=== PATIENT | male | born 1950 | race Two or more races ===

== ENCOUNTER 2022-01-06 12:37 | Outpatient (REF) | payer MEDICARE, MEDICAID, SELFPAY | END 2022-01-06 12:38 | disposition home or self-care (01) | LOC: HO.US 12:37 | PROVIDERS: Visit Provider Internal Medicine | DX: M79.661 Pain in right lower leg (principal); M79.662 Pain in left lower leg | CPT/HCPCS: 93923 ==

== ENCOUNTER 2023-07-05 08:51 | Outpatient (REF) | payer OTHER, SELFPAY ==
[2023-07-05 13:53] LABS: MANUAL DIFF FLAG NO
[2023-07-05 13:56] LABS: Basophils Percent Auto 0.5 % (0-2); Eosinophils Percent Auto 0.3 % (0-4); Hematocrit 40.6 % (42.0-52.0); Hemoglobin 13.9 g/dl (14.0-18.0); Imm Gran Abs Auto 0.06 X10*3/uL (0.00-0.03); Imm Gran Pct Auto 0.7 % (0.0-0.4); Lymphocytes Percent Auto 11.5 % (20-40); Mean Corpuscular HGB Conc 34.2 g/dl (31.0-36.0); Mean Corpuscular Hemoglobin 29.9 pg (27.0-33.0); Mean Corpuscular Volume 87.3 fL (80.0-98.0); Mean Platelet Volume 9.8 fL (9.4-12.4); Monocytes Absolute Auto 0.8 X10*3/uL (0.1-1.2); Neutrophils Absolute Auto 6.9 x10*3/uL (2.0-8.3); Platelet Count 247 X10*3/uL (160-400); Red Blood Count 4.65 X10*6/uL (4.60-5.80); Red Cell Distribution Width 13.4 % (11.0-16.0); White Blood Count 8.8 X10*3/uL (4.8-10.8)
[2023-07-05 14:05] LABS: Estimated Average Glucose 120 mg/dL; Hemoglobin A1c % 5.8 % (<6.0)
[2023-07-05 14:16] LABS: Alanine Aminotransferase 13 U/L (0-40); Albumin Level 4.2 g/dL (3.5-5.0); Alkaline Phosphatase 67 U/L (39-117); Anion Gap 12 (12-20); Aspartate Amino Transferase 25 U/L (5-37); Bilirubin Total 0.9 mg/dL (0.0-1.0); Blood Urea Nitrogen 12 mg/dL (9-16); Calcium 9.7 mg/dL (8.4-10.2); Carbon Dioxide 29 mmol/L (22-29); Chloride 96 mmol/L (96-108); Cholesterol 110 mg/dL (<200); Estimated Glomerular Filt Rate > 60; Glucose Random 86 mg/dL (60-115); HDL Cholesterol 37 mg/dL (>40); LDL Cholesterol Calculated 58 mg/dL (<100); Potassium 3.8 mmol/L (3.3-5.1); Sodium 133 mmol/L (135-145); Total Protein 7.4 g/dL (6.5-8.0); Triglycerides 75 mg/dL (<150)
[2023-07-05 14:31] LABS: TSH reflex Free T4 0.88 uIU/mL (0.32-4.0)
== END 2023-07-05 08:52 | disposition home or self-care (01) ==
LOC: HO.CHCLDS 08:51
PROVIDERS: Visit Provider Internal Medicine
DX: E11.9 Type 2 diabetes mellitus without complications (principal)
CPT/HCPCS: 36415; 80053; 80061; 83036; 84443; 85025

== ENCOUNTER 2023-09-08 10:08 | Outpatient (REF) | payer OTHER, SELFPAY ==
[2023-09-08 15:12] LABS: Creatinine Urine 133.18 mg/dL; Microalbum/Creatinine Ratio Ur 17.2 ug/mg cr (<30)
== END 2023-09-08 10:09 | disposition home or self-care (01) ==
LOC: HO.CHCLDS 10:08
PROVIDERS: Visit Provider Internal Medicine
DX: E11.9 Type 2 diabetes mellitus without complications (principal)
CPT/HCPCS: 82043; 82570

== ENCOUNTER 2024-04-18 08:54 | Outpatient (REF) | payer OTHER, SELFPAY ==
[2024-04-18 14:39] LABS: Estimated Average Glucose 120 mg/dL; Hemoglobin A1C 152.3098 umol/L; Hemoglobin A1c % 5.8 % (<6.0); Total Hemoglobin (HGBA1C) 3816.6506 umol/L
[2024-04-18 14:42] LABS: Alanine Aminotransferase 9 U/L (0-40); Albumin Level 4.4 g/dL (3.5-5.0); Alkaline Phosphatase 68 U/L (39-117); Anion Gap 7 (12-20); Aspartate Amino Transferase 34 U/L (5-37); Bilirubin Total 0.9 mg/dL (0.0-1.0); Blood Urea Nitrogen 16 mg/dL (9-16); Calcium 9.9 mg/dL (8.4-10.2); Carbon Dioxide 32 mmol/L (22-29); Chloride 99 mmol/L (96-108); Cholesterol 112 mg/dL (<200); Estimated Glomerular Filt Rate > 60; Glucose Random 93 mg/dL (60-115); HDL Cholesterol 40 mg/dL (>40); LDL Cholesterol Calculated 59 mg/dL (<100); Sodium 134 mmol/L (135-145); Total Protein 7.4 g/dL (6.5-8.0); Triglycerides 67 mg/dL (<150)
== END 2024-04-18 08:55 | disposition home or self-care (01) ==
LOC: HO.CHCLDS 08:54
PROVIDERS: Visit Provider Internal Medicine
DX: I10 Essential (primary) hypertension (principal); E78.2 Mixed hyperlipidemia; Z13.1 Encounter for screening for diabetes mellitus
CPT/HCPCS: 36415; 80053; 80061; 83036

== ENCOUNTER 2024-10-31 08:53 | Outpatient (AMB) | payer OTHER, SELFPAY ==
--- NOTE | 2024-10-31 08:55 | MHC.OFFVIS ---
Vital Signs 10/31/24 08:56 Height 5 ft 5 in Weight 159 lb 9.835 oz BMI 26.6 BP 142/65 H Blood Pressure Location Lt brachial Position Sitting Pulse 56 Intake Visit Reasons: Pt requested int Colonoscopy Screening Intake Note: New patient in office today for colonoscopy screening. CC: Patient c/o constipation and hx of hemorrhoids w/bleeding in the past. Last colonoscopy in his 40s at [facility]. Utility Systems Repairer Operator Required: Yes Accompanied by: Self / Same As Patient Allergies Penicillins Allergy (Unknown, Verified 10/31/24 09:03) Unknown HPI HPI Pt requested int Colonoscopy Screening: Details: 74-year-old male here for preprocedural meeting to discuss a screening colonoscopy. He is referred by [facility]. PMX Hypertension High cholesterol CAD IA Peripheral arterial disease Diabetes HX OF SEIZURES * SURGICAL HISTORY Cardiac stent CABG Colonoscopy-in his 40s at [facility] * ALLERGIES Penicillin * [employer] LABS: Laboratory Tests 04/18/24 08:55 Estimated GFR > 60 Total Bilirubin 0.9 AST 34 ALT 9 Alkaline Phosphatase 68 TODAY'S VISIT [place] #Hillary Connell and Jen HE had a prior colonoscopy when he was 40 yrs old at [facility], he thinks there may have been polyps. He suffers CIC which is controlled with senna and no upper GI problems. Cardiology: Dr. Goldstein @ [facility] He has CAD and hx of IA, no respiratory problems. He has a hx of epilepsy that is well controlled. No prior anes or sed problems. No ID problems. There is no known FHX of crc or polyps. [facility] History (Updated 10/31/24 @ 09:49 by LATOYA Cardoso) S/P CABG (coronary artery bypass graft) H/O heart artery stent H/O colonoscopy Family History (Updated 10/31/24 @ 09:08 by NICOL Dyer) Mother Heart disease Social History Alcohol intake: never Patient Tobacco Use Status: Never used Tobacco Review of Systems Const Denies fatigue, Denies fever(s), Denies night sweats, Denies poor appetite and Denies weight loss ENT Reports Normal hearing present, Denies dental pain, Denies dysphagia, Denies hearing loss, Denies mouth pain, Denies odynophagia, Denies throat swelling, Denies tongue swelling and Reports other (Dentition adequate) Card Reports no additional complaints Resp Reports no additional complaints GI Details: Denies abdominal pain, Denies melena, Denies bloating, Denies hematochezia, Reports constipation, Denies GI cramping, Denies dysphagia, Denies excessive flatus, Denies early satiety, Denies heartburn, Denies diarrhea, Denies nausea, Denies odynophagia, Denies vomiting and Denies hematemesis Skin/Breast Denies pruritus, Denies lesions, Denies rash and Denies jaundice Neuro Reports Normal hearing present and Denies Abnormal speech present Endo Denies fatigue Aller/Immun Denies throat swelling and Denies tongue swelling Physical Exam Vital Signs: BMI result Body Mass Index 26.6 Const General: cooperative, no acute distress, well developed and well groomed Nutritional Appearance: well nourished Orientation/consciousness: oriented to person, oriented to place and oriented to time Limitations: language barrier HEENT Head: Yes normocephalic and Yes atraumatic Eyes General: appearance normal, both eyes and all related structures Pupils: Equal, round and reactive pupils present Neck Neck: Yes normal visual inspection and Yes no lymphadenopathy Thyroid: Thyroid normal Resp Effort & Inspection: normal respiratory effort and able to speak in complete sentences Auscultation: clear to auscultation bilaterally Cardio Rate: regular rate Rhythm: regular rhythm Heart sounds: Normal, physiologic split S2 sound present Peripheral pulses: radial pulses present and posterior tibial pulses present GI Inspection: No distended and No Abdominal panniculus present Palpation (GI): Soft to palpation, nontender, no guarding, not rigid and No hepatosplenomegaly present Percussion: Yes normal to percussion Auscultation: normal bowel sounds Rectal Exam - Male: Yes deferred Abdomen image:  1. surgical scar Skin General skin exam: no rashes or lesions noted, turgor normal, skin not dry, no jaundice, No spider nevi and no striae Rashes: no rashes Nails: normal Neuro General: oriented to person, oriented to place and oriented to time Cranial nerves: Yes Equal, round and reactive pupils present and Yes Normal hearing present Speech: No Abnormal speech present Motor exam (neuro): Tremors during motor activity present (Upper extremity worse on left side hand) Extrem General: Yes normal to inspection, No clubbing, No cyanosis and Yes edema (mild left ankle) Psych Appearance: grossly normal and well kempt Mental Status: mental status grossly normal Speech and movement: Normal speech and movement present Affect: normal affect Attitude: cooperative Thought process: Normal thought process present and not confabulating Thought content: Normal thought content present Insight: Fair insight present (Psych) and Limited insight present (Psych) Judgement: Fair judgement present (Psych) and Limited judgement present (Psych) Assessment & Plan Assessment & Plan (1) Pre-op examination: Code(s): Z01.818 - Encounter for other preprocedural examination Category: Medical (2) Epilepsy: Code(s): G40.909 - Epilepsy, unspecified, not intractable, without status epilepticus Category: Medical (3) CAD (coronary artery disease): Code(s): I25.10 - Atherosclerotic heart disease of [place] coronary artery without angina pectoris Category: Medical Plan [place] #Hillary Connell and Jen HE had a prior colonoscopy when he was 40 yrs old at [facility], he thinks there may have been polyps. He suffers CIC which is controlled with senna and no upper GI problems. Cardiology: Dr. Goldstein @ [facility] He has CAD and hx of IA, no respiratory problems. He has a hx of epilepsy that is well controlled. No prior anes or sed problems. No ID problems. There is no known FHX of crc or polyps. Orders: Orders Colonoscopy - GI Use Only Today Z01.818 - Encounter for other preprocedural examination Medications: New peg 3350-electrolytes 236-22.74-6.74 -5.86 gram (Golytely) until fecal effluent is clear; do not exceed a total volume of 2,000 mL 240 mL PO Q10M 4,000 mL 0RF 1 day Z12.11 - Encounter for screening for malignant neoplasm of colon bisacodyl (Dulcolax (bisacodyl)) 10 mg (2 x 5 mg) PO BEDTIME 4 tabs 0RF 2 days Coding Level of Care Code New Pt Level 3 (46335) Diagnoses Pre-op examination Z01.818 Epilepsy G40.909 CAD (coronary artery disease) I25.10
[2024-10-31 08:56] VITALS: BP 142/65; PULSE 56; BMI 26.6
--- OUTSIDE RECORDS SUMMARY | 2024-10-31 09:15 | XMS_ITS | Clinical Summary ---
Author Organization [facility] it[facility] Address [address] [place] [address] Care Team Providers Care Director Patient Financial Services Name Role Phone Sal Granger Primary Care Provide r Social History Tobacco Use Types Packs/Day Years Used Date Smoking Tobacco: Never Smokeless Tobacco: Never Alcohol Use Standard Drinks/Week Comments Not Currently 0 (1 standard drink = 0.6 oz pur e alcohol) Sex and Gender Information Value Date Recorded Sex Assigned at Not on file Legal Sex Male 4:54 AM EST Gender Identity Not on file Sexual Orientation Not on file Obstetrics History Last Filed Vital Signs Vital Sign Reading Time Taken Comments Blood Pressure 128/70 01/23/2024 9:29 AM EDT Sit ting L Arm Pulse 58 01/23/2024 9:29 AM EDT Temperature - - Respiratory Rate - - Oxygen Saturation - - Inhaled Oxygen Concentration - - Weight 72.6 kg (160 lb) 01/23/2024 9:29 AM EDT Height 165.1 cm (5' 5 ) 01/23/2024 9:29 AM EDT Body Mass Index 26.63 01/23/2024 9:29 AM EDT Plan of Treatment Health Maintenance Due Date Last Done Comments DTaP,Tdap,and Td Vaccines (1 - Tdap) 1969 Pneumococcal Vaccine: 50+ Years (1 of 1 - PCV) 2000 Zoster Vaccines (1 of 2) 2000 Colorectal Cancer Screening: Colonoscopy 03/14/2022 Falls Risk Assessment 03/14/2022 Hepatitis C Screening 03/14/2022 Hypertension/CHF/CAD Annual BMP Blood Test 03/14/2022 Social Influencers of Health Screening 03/14/2022 COVID-19 Vaccine (1 - 2023-2 5 season) 2023 Depression Screening 04/04/2024 Influenza Vaccine (#1) 2024 2, 12/31/2019 RSV Immunization Adult Patients (1 - 1-dose 75+ series) 2025 Cholesterol Screening (Lipid Panel) 02/05/2029 02/06/2024 HIB Vaccines Aged Out No longer eligi ble based on patient's age to complete this topic HPV Vaccines Aged Out No longer eligi ble based on patient's age to complete this topic Hepatitis A Vaccines Aged Out No long er eligible based on patient's age to complete this topic Hepatitis B Vaccines Aged Out No long er eligible based on patient's age to complete this topic IPV Vaccines Aged Out No longer eligi ble based on patient's age to complete this topic MMR Vaccines Aged Out No longer eligi ble based on patient's age to complete this topic Meningococcal ACWY Vaccine Aged Out N o longer eligible based on patient's age to complete this topic Meningococcal B Vaccine Aged Out No l onger eligible based on patient's age to complete this topic RSV Immunization Patients Under 20 months Aged Out No longer eligible b ased on patient's age to complete this topic Varicella Vaccines Aged Out No longer eligible based on patient's age to complete this topic Procedures Procedure Name Priority Date/Time Associated Diagnosis Comments LIPID PANEL Routine 02/06/2024 9:04 AM EST from Last 3 Months or Most Recently Relevant to Health Maintenance Results * Lipid panel (02/06/2024 9:04 AM EST) Pathologist [facility] Cholesterol Total 121 100 - 199 mg/dL [facility] Triglycerides 74 0 - 149 mg/dL [facility] HDL Cholesterol 45 >39 mg/dL [facility] VLDL Cholesterol Calculated 15 5 - 40 mg/dL [facility] 1 LDL Chol Calc ([facility]) 61 0 - 99 mg/dL [facility] 1 02/06/2024 9:04 AM EST 02/06/2024 Narrative [facility] 1 - 02/07/2024 1:06 AM EST Performed at: [facility] [id number] Journeyman Electrician: Angelica Perry MD, Phone: [phone] us Arnoldo Lechuga FONDANT PUFF MAKER LAB BLOOD ORDERABLES Final Result [facility] 1 from Last 3 Months or Most Recently Relevant to Health Maintenance Care Teams Director Patient Financial Services Relationship Specialty Start Date End Date Sal Granger [address] [place], [place] PCP - General Internal Medicine 10/08/20
--- OUTSIDE RECORDS SUMMARY | 2024-10-31 09:15 | XMS_ITS | Encounter Summary ---
Author Organization [employer] [facility] Address [address] [place] [address] [address] [place] [address] Care Team Providers Care Delicatessen Department Manager Name Role Phone Sal Granger MD Primary Care Prov ider Reason for Visit * Reason Comments Med Refill Encounter Details Date Type Department Care Team (Late Contact Info) Description 10/06/2022 Refill [facility] [address] [place] [address] Sal Granger MD [address] [place] [address] Type 2 diabetes mellitus without complication, without long-term current use of insulin (CMS/HCC); Primary hypertension Social History Tobacco Use Types Packs/Day Years Used Date Smoking Tobacco: Never Assessed Sex and Gender Information Value Date Recorded Sex Assigned at Male 02/01/2022 10:37 AM EDT Legal Sex Male 10:37 AM EDT Gender Identity Male 02/01/2022 10:37 AM EDT Sexual Orientation Straight 02/01/2022 10 :37 AM EDT documented as of this encounter Plan of Treatment Upcoming Encounters Date Type Department Care Team (Late Contact Info) Description 12/24/2024 8:45 AM EDT Office Visit [facility] [address], [place] [phone] Sal Granger MD [address] [place] [address] documented as of this encounter Visit Diagnoses Diagnosis Type 2 diabetes mellitus without complication, without long-term current use of insulin (CMS/HCC) Primary hypertension Unspecified essential hypertension documented in this encounter Care Teams Delicatessen Department Manager Relationship Specialty Start Date End Date Sal Granger MD [address] [place] [id number] PCP - General Internal Medicine 03/06/20 documented as of this encounter
== END 2024-10-31 09:52 | disposition home or self-care (01) ==
LOC: HO.HGI 08:54
PROVIDERS: PCP Internal Medicine; Visit Provider Nurse Practitioner
DX: Z01.818 Encounter for other preprocedural examination (principal); Z12.11 Encounter for screening for malignant neoplasm of colon; G40.909 Epilepsy, unspecified, not intractable, without status epilepticus; I25.10 Atherosclerotic heart disease of native coronary artery without angina pectoris
CPT/HCPCS: 99024

== ENCOUNTER → 2024-10-31 08:53 | Outpatient (BNVA) | payer OTHER, SELFPAY | PROVIDERS: PCP Internal Medicine; Visit Provider Nurse Practitioner | DX: Z01.818 Encounter for other preprocedural examination (principal); K59.00 Constipation, unspecified; Z87.19 Personal history of other diseases of the digestive system; G40.909 Epilepsy, unspecified, not intractable, without status epilepticus; I25.10 Atherosclerotic heart disease of native coronary artery without angina pectoris | CPT/HCPCS: 99212 ==

== ENCOUNTER 2024-12-24 09:31 | Outpatient (REF) | payer OTHER, SELFPAY ==
--- OUTSIDE RECORDS SUMMARY | 2024-12-24 08:45 | XMS_ITS | Encounter Summary ---
Author Organization [employer] Address [address] [facility] [address] [place] [address] Care Team Providers Care Surveillance Agent Name Role Phone Sal Granger MD Primary Care Prov ider Encounter Details Date Type Department Care Team ([facility] st Contact Info) Description 12/24/2024 8:45 AM EDT Office Visit [facility] [address] [place], [place] [phone] Sal Granger MD [address] [place] [address] Type 2 diabetes mellitus without complication, without long-term current use of insulin ([facility]) Social History Tobacco Use Types Packs/Day Years Used Date Smoking Tobacco: Never Smokeless Tobacco: Never Alcohol Use Standard Drinks/Week Comments Never 0 (1 standard drink = 0.6 oz pur e alcohol) Depression Answer Date Recorded Patient Health Questionnaire-9 Score 0 09/18/2024 Patient Health Questionnaire-9 Score 0 09/18/2024 Last PHQ-9: Questionnaire Data Not on file 0 09/18/2024 Housing Stability Answer Date Recorded What is your housing situation today? I have erick real 09/18/[address] you li ve. Do you have problems with any of the following? None of the above 09/18/2024 Food Insecurity Answer Date Recorded Within the past 12 months, y ou worried that your food would run out before you got money to buy more: Never True 09/18/2024 Within the past 12 months,th e food you bought just didn't last and you didn't have enough money to get more: Never True Transportation Answer Date Recorded In the past 12 months, has l ack of transportation kept you from medical appts, meetings, work or from getting things needed for daily living? No 09/18/2024 Utilities Answer Date Recorded In the past 12 months, has t he electric, gas, oil or water company threatened to shut off services in your home? No 09/18/2024 Depression Answer Date Recorded Patient Health Questionnaire-2 Score 0 09/18/2024 Internet Access Answer Date Recorded Internet Access Q1 Yes 09/18/2024 Internet Access Q2 Not on file 09/18/2024 Sex and Gender Information Value Date Recorded Sex Assigned at Male 02/01/2022 10:37 AM EDT Legal Sex Male 10:37 AM EDT Gender Identity Male 02/01/2022 10:37 AM EDT Sexual Orientation Straight 02/01/2022 10 :37 AM EDT documented as of this encounter Last Filed Vital Signs Vital Sign Reading Time Taken Comments Blood Pressure 154/76 12/24/2024 9:01 AM EDT Pulse 60 12/24/2024 9:01 AM EDT Temperature 36.9 C (98.4 F) 12/24/2024 9:01 AM EDT Respiratory Rate 16 12/24/2024 9:01 AM EDT Oxygen Saturation - - Inhaled Oxygen Concentration - - Weight 70.3 kg (155 lb) 12/24/2024 9:01 AM EDT Height 165.1 cm (5' 5 ) 12/24/2024 9:01 AM EDT Body Mass Index 25.79 12/24/2024 9:01 AM EDT documented in this encounter Plan of Treatment Scheduled Orders Name Type Priority Associated Diagnoses Orde r Schedule CBC auto differential Lab Routine Type 2 diabetes mellitus without complication, without long-term current use of insulin ([facility]) Expected: 12/24/2024 (Approximate), Expires: 12/24/2025 Comprehensive Metabolic Panel Lab Routine Type 2 diabetes mellitus without complication, without long-term current use of insulin (CMS/HCC) Expected: 12/24/2024 (Approximate), Expires: 12/24/2025 Lipid Panel, Standard Lab Routine Type 2 diabetes mellitus without complication, without long-term current use of insulin (CMS/HCC) Expected: 12/24/2024 (Approximate), Expires: 12/24/2025 TSH W/Reflex to FT4 Lab Routine Type 2 diabetes mellitus without complication, without long-term current use of insulin ([facility]/HCC) Expected: 12/24/2024 (Approximate), Expires: 12/24/2025 documented as of this encounter Procedures Procedure Name Priority Date/Time Associated Diagnosis Comments POCT GLYCATED HEMOGLOBIN, TOTAL Routine 12/24/2024 9:04 AM EDT Type 2 diabetes mellitus without complication, without long-term current use of insulin ([facility]) POCT GLUCOSE Routine 12/24/2024 9:03 AM EDT Type 2 diabetes mellitus without complication, without long-term current use of insulin ([facility]) documented in this encounter Results * (ABNORMAL) POCT Hgb A1c (12/24/2024 9:04 AM EDT) Hemoglobin A1C 6.1(A) 4.0 - 5.7 % QC Media Lot # [id number] Lot# Expiration Date Blood 12/24/2024 9:04 AM EDT Sal Sabillon MD POINT OF CARE TEST ENTER/EDIT ORDERABLES Final Result * POCT Glucose (12/24/2024 9:03 AM EDT) Glucose Blood, POC 116 60 - 200 mg/dL QC Media Lot # [id number] Lot# Expiration Date Blood Capillary blood specimen / Unknown 12/24/2024 9:03 AM EDT Sal Sabillon MD POINT OF CARE TEST ENTER/EDIT ORDERABLES Final Result documented in this encounter Visit Diagnoses Diagnosis Type 2 diabetes mellitus without complication, without long-term current use of insulin ([facility]) documented in this encounter Additional Health Concerns Assessment Noted Time PHQ-9 Depression Total Score: 0 09/19/19 25 10:32 AM EDT documented as of this encounter Care Teams Surveillance Agent Relationship Specialty Start Date End Date Sal Granger, MD [address] [place] [id number] PCP - General Internal Medicine 03/06/20 documented as of this encounter
--- OUTSIDE RECORDS SUMMARY | 2024-12-24 11:13 | XMS_ITS | Encounter Summary ---
Author Organization [employer] Address [address] [place] [address] [address] [place] [address] Care Team Providers Care Senior Hr Generalist Name Role Phone Sal Granger MD Primary Care Prov ider Reason for Visit * Reason Comments Med Change Request Encounter Details Date Type Department Care Team ([facility] Contact Info) Description 08/27/2022 Refill [facility] [address] [place], [place] [phone] Sal Granger MD [address] [place] [address] Social History Tobacco Use Types Packs/Day Years Used Date Smoking Tobacco: Never Assessed Sex and Gender Information Value Date Recorded Sex Assigned at Male 02/01/2022 10:37 AM EDT Legal Sex Male 10:37 AM EDT Gender Identity Male 02/01/2022 10:37 AM EDT Sexual Orientation Straight 02/01/2022 10 :37 AM EDT COVID-19 Exposure Response Date Recorded In the last 10 days, have yo u been in contact with someone who was confirmed or suspected to have Coronavirus/COVID-19? No / Unsure 08/10/2022 1:14 PM EDT documented as of this encounter Miscellaneous Notes * Telephone Encounter - Sal Sabillon MD - 08/31/2022 8:52 AM EDT done documented in this encounter Plan of Treatment Not on file documented as of this encounter Visit Diagnoses Not on filedocumented in this encounter Care Teams Senior Hr Generalist Relationship Specialty Start Date End Date Sal Granger MD [address] [place] [id number] PCP - General Internal Medicine 03/06/20 documented as of this encounter
--- OUTSIDE RECORDS SUMMARY | 2024-12-24 11:13 | XMS_ITS | Clinical Summary ---
Author Organization [employer] Address [address] [facility] 7t [place] [address] Care Team Providers Care Plant Custodian Name Role Phone Sal Granger MD Primary Care Prov ider Allergies Active Allergy Reactions Criticality Noted Date Comments Penicillins 08/10/2022 Medications Blood Glucose Monitoring Suppl (ONE TOUCH ULTRA 2) w/Device kit 1 kit 3 times daily. 1 kit 09/01/19 23 Active docusate sodium (Colace) 100 MG capsule TAKE 1 CAPSULE BY ORAL ROUTE 2 TIMES EVERY DAY AT BEDTIME NEEDED 180 capsule 1 09/12/19 24 Active OneTouch Ultra test strip TAKE 1 DROP OF BLOOD FOR GLUCOSE MONITORING 3 TIMES A DAY 100 strip 12 11/24/19 24 Active Lancets (OneTouch Delica Plus [id number]) [facility] Place 1 Lancet on the skin Once per day. 100 each 11 12/02/19 24 Active metoprolol succinate XL (Toprol-XL) 200 MG 24 hr tablet TAKE 1 TABLET (200 MG) BY MOUTH IN THE MORNING. DO NOT CRUSH OR CHEW. 90 tablet 2 05/24/19 25 Active clopidogrel (Plavix) 75 MG tablet TAKE 1 TABLET (75 MG) BY MOUTH IN THE MORNING 90 tablet 1 08/31/19 25 Active lisinopril 40 MG tabletIndication s:Primary hypertension TAKE 1 TABLET BY MOUTH EVERY DAY IN THE MORNING 90 tablet 1 09/05/19 25 Active chlorthalidone (Hygroton) 25 MG tabletIndication s:Primary hypertension TAKE 1 TABLET BY MOUTH EVERY DAY IN THE MORNING 90 tablet 1 09/05/19 25 Active isosorbide mononitrate ER (Imdur) 30 MG 24 hr tabletIndication s:Primary hypertension TAKE 1 TABLET BY MOUTH EVERY DAY IN THE MORNING STRENGTH: 30 MG 90 tablet 1 09/05/19 25 Active Aspirin Low Dose 81 MG chewable tabletIndication s:Primary hypertension,Typ e 2 diabetes mellitus without complication, without long-term current use of insulin (CMS/HCC) CHEW 1 TABLET EVERY DAY 90 tablet 1 12/12/19 25 Active atorvastatin (Lipitor) 80 MG tablet TAKE 1 TABLET (80 MG) BY MOUTH IN THE MORNING 90 tablet 1 12/12/19 25 Active aspirin (Aspirin Low Dose) 81 MG chewable tabletIndication s:Primary hypertension,Typ e 2 diabetes mellitus without complication, without long-term current use of insulin (CMS/HCC) CHEW 1 TABLET BY MOUTH EVERY DAY STRENGTH: 81 MG 90 tablet 1 05/15/19 025 Discontinued atorvastatin (Lipitor) 80 MG tablet TAKE 1 TABLET (80 MG) BY MOUTH IN THE MORNING 90 tablet 1 05/25/19 025 Discontinued Active Problems Problem Noted Date Diagnosed Date PAD (peripheral artery disease) 06/18/2024 Assessment & Plan (06/18/2024 12:47 PM EDT): Discussed with patient finding, he is currently asymptomatic, previously evaluated by vascular surgery Screening for colon cancer 08/10/2022 Assessment & Plan (06/18/2024 10:33 AM EDT): Will refer for sceening colon cancer Assessment & Plan (08/10/2022 2:08 PM EDT): Due on 07/2024 Primary hypertension 08/10/2022 Assessment & Plan (09/18/2024 11:00 AM EDT): Controlled, keep low sodium diet and exercise as tolerated, keep bp log, target <140/90, followed by cardiology Assessment & Plan (06/18/2024 12:45 PM EDT): Controlled, at home has been below 130/80, no changes will be made, continue low sodium diet and exercise as tolerated Assessment & Plan (03/20/2024 2:19 PM EST): Controlled, continue low sodium diet and exercise as tolerated, keep bp log, target <140/90, Assessment & Plan (12/02/2023 10:05 AM EDT): Controlled, continue lisinopril/chlothalidone/imdur and metoprolol, follow up cardiology, Assessment & Plan (06/22/2023 11:16 AM EDT): Controlledon lisinopril/chlorthalidone/imdur and metoprolol, no changes will be made, keep bp target <130/80, New labs will be ordered Assessment & Plan (08/10/2022 2:08 PM EDT): Controlled, reinforced low sodium diet and exercise as tolerated, following cardiology, no reported chest pain episode, will place new lab orders for guidance of therapy Mixed hyperlipidemia 08/10/2022 Assessment & Plan (09/18/2024 11:01 AM EDT): On atorvastatin 80mg, keep low cholesterol diet, will order new labs for guidance of therapy Assessment & Plan (06/18/2024 12:46 PM EDT): On atorvastatin, labs from April reviewed were stable, no changes will be made Assessment & Plan (03/20/2024 2:21 PM EST): On atorvastatin 80mg, new labs will be ordered for guidance of therapy Assessment & Plan (06/22/2023 11:30 AM EDT): On atorvastatin, new labs will be ordered for guidance Coronary artery disease invo lving curyung coronary artery of curyung heart without angina pectoris 08/10/2022 Assessment & Plan (06/22/2023 11:16 AM EDT): Followed by cardiology, no chest pain reported, S/P ablation of atrial flutter 08/10/2022 Resolved Problems Problem Noted Date Diagnosed Date Resolved Date Type 2 diabetes mellitus wit hout complication, without long-term current use of insulin 08/10/2022 09/18/2024 Assessment & Plan (12/02/2023 10:06 AM EDT): Controlled, most of the time has remained below 120, he is only taking metformin 500mg, told to discontinue medication and continue with diabetic diet, will follow up in 3 months Eye exam done 3-4 months ago Assessment & Plan (06/22/2023 11:16 AM EDT): Today FBS was 104, no reported episode of hypoglycemia, continue metformin, no changes will be made Assessment & Plan (08/10/2022 2:09 PM EDT): Controlled, a1c today was 6.2%, no changes will be made Eye exam done on 06/2022 Encounters Date Type Department Care Team Description 12/24/2024 8:45 AM EDT Office Visit [facility] [address] [place] [address] Sal Granger MD Type 2 diabetes mellitus without complication, without long-term current use of insulin ([facility]) 12/24/2024 Travel 12/21/2024 Telephone [facility] [address] [place] [address] Sal Granger MD chart prep 12/10/2024 Refill [facility] [address] [place] [address] Sal Granger MD Primary hypertension; Type 2 diabetes mellitus without complication, without long-term current use of insulin ([facility]) from Last 3 Months Immunizations Immunization Administration Dates Next Due Hep B, adult 02/15/2022,11/23/2021,10/26/2021 Influenza High-dose Quadriva lent Preservative Free 12/30/2019 Influenza, IIV3, injectable 06/28/2013 Pneumococcal Conjugate PCV 13 01/22/2021 Pneumococcal Conjugate PCV 20 08/10/2022 Tdap 10/15/2021,02/01/2014 Zoster, Recombinant 01/22/2021 Social History Tobacco Use Types Packs/Day Years Used Date Smoking Tobacco: Never Smokeless Tobacco: Never Tobacco Cessation:Counseling Given: Not Answered Alcohol Use Standard Drinks/Week Comments Never 0 [...] Orientation Straight 02/01/2022 10 :37 AM EDT Last Filed Vital Signs Vital Sign Reading Time Taken Comments Blood Pressure 154/76 12/24/2024 9:01 AM EDT Pulse 60 12/24/2024 9:01 AM EDT Temperature 36.9 C (98.4 F) 12/24/2024 9:01 AM EDT Respiratory Rate 16 12/24/2024 9:01 AM EDT Oxygen Saturation 99% 06/18/2024 10:13 AM EDT Inhaled Oxygen Concentration - - Weight 70.3 kg (155 lb) 12/24/2024 9:01 AM EDT Height 165.1 cm (5' 5 ) 12/24/2024 9:01 AM EDT Body Mass Index 25.79 12/24/2024 9:01 AM EDT Plan of Treatment Health Maintenance Due Date Last Done Comments CT Colonography 1950 Colonoscopy 1950 Colorectal Cancer Screening 1950 FIT DNA/Cologuard 1950 FIT 1950 FOBT 1950 Sigmoidoscopy 1950 Diabetes: Foot Exam 1960 Eye Exam 1960 Diabetes: Urine Protein Screening 11/28/2024 11/29/2023, 09/08/2023, 08/11/2022, Additional history exists COVID-19 Vaccine ( season) 2024 12/29/2023, 09/16/2022, 07/23/2021, Additional history exists Lipid Panel 04/18/2025 04/18/2024, 04/0 05/2023, 08/11/2022, Additional history exists Tobacco Screening 06/18/2025 06/18/2024 Diabetes: Hemoglobin A1C 06/23/2025 025, 04/18/2024, 07/05/2023, Additional history exists Depression Screening 09/18/2025 09/18/2024, 09/19/19 25 SDOH Screening 09/18/2025 09/18/2024 Alcohol/Substance Use Screening 12/24/2025 12/24/2024 DTaP/Tdap/Td Vaccines (3 - Td or Tdap) 10/16/2031 10/15/2021, 02/01/2014 Hepatitis B Vaccines Completed 02/15/2022, 11/23/2021, 10/26/2021 Pneumococcal Vaccine: 50+ Years Completed 08/10/2022, 01/22/2021 Hepatitis C Screening Completed 08/11/2022, 022 Zoster Vaccines Completed 07/04/2023, 04/05, 01/22/2021 RSV Patients and Patients Aged 60 years or older Completed 09/17/2023 Influenza Vaccine Completed 12/10/2024, , 12/30/2019, Additional history exists HIB Vaccines Aged Out No longer eligi [...] patient's age to complete this topic Meningococcal Vaccine Aged Out No santiago sanjay eligible based on patient's age to complete this topic RSV under 20 months Aged Out No longe r eligible based on patient's age to complete this topic Rotavirus Vaccines Aged Out No longer eligible based on patient's age to complete this topic Procedures Procedure Name Priority Date/Time Associated Diagnosis Comments POCT GLYCATED HEMOGLOBIN, TOTAL Routine 12/24/2024 9:04 AM EDT Type 2 diabetes mellitus without complication, without long-term current use of insulin ([facility]) POCT GLUCOSE Routine 12/24/2024 9:03 AM EDT Type 2 diabetes mellitus without complication, without long-term current use of insulin ([facility]) LIPID PANEL, STANDARD Routine 04/18/2024 8:55 AM EST Mixed hyperlipidemia ALBUMIN/CREATININE RATIO, TIMED URINE Routine 11/29/2023 11:11 AM EDT HEPATITIS C AB W/REFL TO HCV RNA, QN, PCR Routine 08/11/2022 8:36 AM EDT Type 2 diabetes mellitus without complication, without long-term current use of insulin ([facility]) from Last 3 Months or Most Recently Relevant to Health Maintenance Results * (ABNORMAL) POCT Hgb A1c (12/24/2024 9:04 AM EDT) Hemoglobin A1C 6.1(A) 4.0 - 5.7 % QC Media Lot # [id number] Lot# Expiration Date [id number] Blood 12/24/2024 9:04 AM EDT Sal Sabillon MD POINT OF CARE TEST ENTER/EDIT ORDERABLES Final Result * POCT Glucose (12/24/2024 9:03 AM EDT) Glucose Blood, POC 116 60 - 200 mg/dL QC Media Lot # [id number] Lot# Expiration Date Blood Capillary blood specimen / Unknown 12/24/2024 9:03 AM EDT Sal Sabillon MD POINT OF CARE TEST ENTER/EDIT ORDERABLES Final Result * (ABNORMAL) Lipid Panel, Standard (04/18/2024 8:55 AM EST) Triglycerides 67 <150 mg/dL [facility] Comment:Desirable Triglyceri de: less than 150 mg/dLBorderline High Triglyceride 150-199 mg/dLHigh Triglyceride: 200-499 mg/dLVery High Triglyceride: greater than or equal to 5OO mg/dL Cholesterol 112 <200 mg/dL [facility] Comment:Desirable Cholestero l: less than 200 mg/dLBorderline High Cholesterol: 200-239 mg/dLHigh Cholesterol: greater than 239 mg/dL LDL Cholesterol Calculated 59 <100 mg/dL [facility] Comment:Desirable LDL: less than 100 mg/dLNear Optimal/Above Optimal LDL: 110- 129 mg/dLBorderline High LDL: 130-159 mg/dLHigh LDL: 160-189 mg/dLVery High LDL: greater than or equal to 190 mg/dL HDL Cholesterol 40(L) >40 mg/dL [facility] Comment:Desirable HDL: great er than 40 mg/dL Note: This HDL assay may give artificially low results in patients with liver disease. Blood Venous blood specimen / Unknown 04/18/2024 8:55 AM EST 04/18/2024 2:20 PM EST Sal Sabillon MD LAB BLOOD ORDERABL ES Final Result [facility] [address] [place] [address] [phone] * Albumin/Creatinine Ration, Timed Urine (11/29/2023 11:11 AM EDT) Urine Urine specimen obtained by clean catch procedure / Unknown Historical Provider LAB URINE ORDERABLES Rem[facility] Result * Hepatitis C Antibody with Reflex to HCV, RNA, Quantitative, Real-Time PCR (08/11/2022 8:36 AM EDT) Hepatitis C Antibody NON-REACT KOBY NON-REACT KOBY [facility] Index 0.07 <1.00 [facility] Comment: HCV antibody was non-reactive. There is no laboratory evidence of HCV infection. In most cases, no further action is required. However, if recent HCV exposure is suspected, a test for HCV RNA (test code 17590) is suggested. For additional information please refer to http://education.VetCloud/faq/POE75u7 (This link is being provided for informational/ educational purposes only.) Blood Venous blood specimen / Unknown 08/11/2022 8:36 AM EDT 08/11/2022 8:36 AM EDT Narrative [facility] - 08/13/2022 9:59 PM EDT FASTING:YES AN UPDATE OR CORRECTION HAS BEEN MADE TO NAME FASTING: YES Sal Sabillon MD LAB BLOOD ORDERABL ES Final Result [facility] [address], [place] [address] [facility] [address] [place] [address] from Last 3 Months or Most Recently Relevant to Health Maintenance [place] [address] [place] [address] STANDARD [facility] [place] [facility] DUAL COMPLETE Care Teams Plant Custodian Relationship Specialty Start Date End Date Sal Granger MD [address] [place] [id number] PCP - General Internal Medicine 03/06/20
--- OUTSIDE RECORDS SUMMARY | 2024-12-24 11:13 | XMS_ITS | Encounter Summary ---
Author Organization [facility] Address [address] [place] [address] 7 [place] [address] Care Team Providers Care Recovery Advocate Name Role Phone Sal Granger MD Primary Care Prov ider Reason for Visit * Reason Comments Med Refill Encounter Details Date Type Department Care Team ([facility] st Contact Info) Description 10/06/2022 Refill [facility] [address] [place], [place] [phone] Sal Granger MD [address] [place] [address] Type 2 diabetes mellitus without complication, without long-term current use of insulin ([facility]); Primary hypertension Social History Tobacco Use Types Packs/Day Years Used Date Smoking Tobacco: Never Assessed Sex and Gender Information Value Date Recorded Sex Assigned at Male 02/01/2022 10:37 AM EDT Legal Sex Male 10:37 AM EDT Gender Identity Male 02/01/2022 10:37 AM EDT Sexual Orientation Straight 02/01/2022 10 :37 AM EDT documented as of this encounter Plan of Treatment Not on file documented as of this encounter Visit Diagnoses Diagnosis Type 2 diabetes mellitus without complication, without long-term current use of insulin ([facility]) Primary hypertension Unspecified essential hypertension documented in this encounter Care Teams Recovery Advocate Relationship Specialty Start Date End Date Sal Granger MD [address] [place] [address] PCP - General Internal Medicine 03/06/20 documented as of this encounter
--- OUTSIDE RECORDS SUMMARY | 2024-12-24 11:13 | XMS_ITS | Encounter Summary ---
Author Organization [employer] Address [address] [facility] 7t [place] [address] Care Team Providers Care Data Integrity Analyst Name Role Phone Sal Granger MD Primary Care Prov ider Reason for Visit * Reason Onset Date Comments Appointment Request 05/18/2024 Encounter Details Date Type Department Care Team ([facility] st Contact Info) Description 05/18/2024 Telephone [facility] [address] [place] [address] Sal Granger MD [address] [place] [address] Appointment Request Social History Tobacco Use Types Packs/Day Years Used Date Smoking Tobacco: Never Smokeless Tobacco: Never Alcohol Use Standard Drinks/Week Comments Never 0 (1 standard drink = 0.6 oz pur e alcohol) Depression Answer Date Recorded Patient Health Questionnaire-9 Score 0 06/22/2023 Patient Health Questionnaire-9 Score 0 06/22/2023 Last PHQ-9: Questionnaire Data Not on file 0 06/22/2023 Housing Stability Answer Date Recorded What is your housing situation today? I have erick real 06/22/[address] you li ve. Do you have problems with any of the following? None of the above 06/22/2023 Food Insecurity Answer Date Recorded Within the past 12 months, y ou worried that your food would run out before you got money to buy more: Never True 06/22/2023 Within the past 12 months,th e food you bought just didn't last and you didn't have enough money to get more: Never True Transportation Answer Date Recorded In the past 12 months, has l ack of transportation kept you from medical appts, meetings, work or from getting things needed for daily living? No 06/22/2023 Utilities Answer Date Recorded In the past 12 months, has t he electric, gas, oil or water company threatened to shut off services in your home? No 06/22/2023 Depression Answer Date Recorded Patient Health Questionnaire-2 Score 0 06/22/2023 Sex and Gender Information Value Date Recorded Sex Assigned at Male 02/01/2022 10:37 AM EDT Legal Sex Male 10:37 AM EDT Gender Identity Male 02/01/2022 10:37 AM EDT Sexual Orientation Straight 02/01/2022 10 :37 AM EDT documented as of this encounter Miscellaneous Notes * Telephone Encounter - Bartolo Maldonadonandez - 05/18/2024 2:43 PM EST Tc from pt Spouse stating that a Visit nurse went to their House and she states that he ran some test on the pt and that one of them ended up being Low. Pt doesn't understand the Papers that she was given. She was told by the Nurse that he needs to see his PCP as soon as possible. For more information Contact pt Spouse [phone] documented in this encounter Plan of Treatment Not on file documented as of this encounter Visit Diagnoses Not on filedocumented in this encounter Additional Health Concerns Assessment Noted Time PHQ-9 Depression Total Score: 0 06/22/19 24 10:48 AM EDT documented as of this encounter Care Teams Data Integrity Analyst Relationship Specialty Start Date End Date Sal Granger MD [address] [place] [id number] PCP - General Internal Medicine 03/06/20 documented as of this encounter
--- OUTSIDE RECORDS SUMMARY | 2024-12-24 11:13 | XMS_ITS | Encounter Summary ---
Author Organization [employer] Address [address] [facility] [address] [place] [address] Care Team Providers Care Party Plan Demonstrator Name Role Phone Sal Granger MD Primary Care Prov ider Encounter Details Date Type Department Care Team (Latest Contact Info) Description 12/24/2024 Travel Social History Tobacco Use Types Packs/Day Years [...] documented as of this encounter Care Teams Party Plan Demonstrator Relationship Specialty Start Date End Date Sal Granger MD [address] [place] [address] PCP - General Internal Medicine 03/06/20 documented as of this encounter
--- OUTSIDE RECORDS SUMMARY | 2024-12-24 11:14 | XMS_ITS | Encounter Summary ---
Author Organization [employer] Address [address] [facility] [address] [place] [address] Care Team Providers Care Social Worker Psychiatric Name Role Phone Sal Granger MD Primary Care Prov ider Encounter Details Date Type Department Care Team (Late st Contact Info) Description 12/07/2023 Orders Only [facility] [address] [place] [address] ProviderJose Eduardo MD Social History Tobacco Use Types Packs/Day Years [...] your housing situation today? I have erick sing 06/22/[address] you li [...] on file documented as of this encounter Procedures Procedure Name Priority Date/Time Associated Diagnosis Comments ALBUMIN/CREATININE RATIO, TIMED URINE Routine 11/29/2023 11:11 AM EDT documented in this encounter Results * Albumin/Creatinine Ration, Timed Urine (11/29/2023 11:11 AM EDT) Urine Urine specimen obtained by clean catch procedure / Unknown Historical Provider LAB URINE ORDERABLES Remedios l Result documented in this encounter Visit Diagnoses Not on filedocumented in this encounter Additional Health Concerns Assessment Noted Time PHQ-9 Depression Total Score: 0 06/22/19 24 10:48 AM EDT documented as of this encounter Care Teams Social Worker Psychiatric Relationship Specialty Start Date End Date Sal Granger MD [address] [place] [phone] PCP - General Internal Medicine 03/06/20 documented as of this encounter
--- OUTSIDE RECORDS SUMMARY | 2024-12-24 11:14 | XMS_ITS | Encounter Summary ---
Author Organization [employer] Address [address] [facility] 7t [place] [address] Care Team Providers Care Mutuel Clerk Name Role Phone Sal Granger MD Primary Care Prov ider Reason for Visit * Reason Onset Date Comments Complain 11/24/2023 Encounter Details Date Type Department Care Team ([facility] st Contact Info) Description 11/24/2023 Telephone [facility] [address] [place] [address] Sal Granger MD [address] [place] [address] Complain Social History Tobacco Use Types Packs/Day Years [...] encounter Miscellaneous Notes * Telephone Encounter - Syl Amato - 11/24/2023 11:15 AM EDT Pt spouse called, in regards to appt, narrative writer advised appt was r/s for next week, Spouse and pt got very upset and frustrated, narrative writer apologized, Spouse got even more frustrated with Apology due to stating no called was provided to let know that appt was canceled and r/s. documented in this encounter Plan of Treatment Not on file documented as of this encounter Visit Diagnoses Not on filedocumented in this encounter Additional Health Concerns Assessment Noted Time PHQ-9 Depression Total Score: 0 06/22/19 24 10:48 AM EDT documented as of this encounter Care Teams Mutuel Clerk Relationship Specialty Start Date End Date Sal Granger MD [address] [place] [id number] PCP - General Internal Medicine 03/06/20 documented as of this encounter
--- OUTSIDE RECORDS SUMMARY | 2024-12-24 11:14 | XMS_ITS | Clinical Summary ---
Author Organization [facility] Address [address] [place] [address] Care Team Providers Care Founding Partner Name Role Phone Sal Granger Primary Care [...] 03/14/2022 Social Influencers of Health Screening 03/14/2022 Depression Screening 04/04/2024 COVID-19 Vaccine (1 - 2023-2 5 season) 2024 Influenza Vaccine (#1) 2024 2, 12/31/2019 RSV [...] Lipid panel (02/06/2024 9:04 AM EST) Pathologist [facility] Cholesterol Total 121 100 - 199 mg/dL [facility] Triglycerides 74 0 - 149 mg/dL [facility] HDL Cholesterol 45 >39 mg/dL [facility] 1 VLDL Cholesterol Calculated 15 5 - 40 mg/dL [facility] 1 LDL Chol Calc ([facility]) 61 0 - 99 mg/dL [facility] 1 02/06/2024 9:04 AM EST 02/06/2024 Narrative [facility] 1 - 02/07/2024 1:06 AM EST Performed at: [facility] [id number] Tow Motor Driver: Angelica Perry MD, Phone: [phone] us Arnoldo Lechuga PEDIATRIC DENTIST LAB BLOOD ORDERABLES Final Result [facility] 1 from Last 3 Months or Most Recently Relevant to Health Maintenance Care Teams Founding Partner Relationship Specialty Start Date End Date Sal Granger [address] [place], [place] PCP - General Internal Medicine 10/08/20
--- OUTSIDE RECORDS SUMMARY | 2024-12-24 11:14 | XMS_ITS | Encounter Summary ---
Author Organization [employer] Address [address] [facility] [address] [place] [address] Care Team Providers Care Waxing Machine Operator Name Role Phone Sal Granger MD Primary Care Prov ider Reason for Visit * Reason Onset Date Comments chart prep 12/21/2024 Encounter Details Date Type Department Care Team ([facility] st Contact Info) Description 12/21/[address] [facility] [address] [place] [address] Sal Granger MD [address] [place] [address] chart prep Social History Tobacco Use Types Packs/Day Years [...] encounter Miscellaneous Notes * Telephone Encounter - Sophie Carrizales MA - 12/21/2024 1:19 PM EDT Chart Prep Labs: not done Images: done Referrals: complete Vaccines due: Covid and Flu Screenings: colonoscopy and foot exam. EYE Overdue care gaps: A1c, Glucose, and SBIRT documented in this encounter Plan of Treatment Not on file documented as of this encounter Visit Diagnoses Not on filedocumented in this encounter Additional Health Concerns Assessment Noted Time PHQ-9 Depression Total Score: 0 09/19/19 25 10:32 AM EDT documented as of this encounter Care Teams Waxing Machine Operator Relationship Specialty Start Date End Date Sal Granger MD [address] [place] [id number] PCP - General Internal Medicine 03/06/20 documented as of this encounter
[2024-12-24 14:21] LABS: MANUAL DIFF FLAG NO
[2024-12-24 14:31] LABS: Hematocrit 42.4 % (42.0-52.0); Hemoglobin 14.6 g/dl (14.0-18.0); Imm Gran Abs Auto 0.06 X10*3/uL (0.00-0.03); Imm Gran Pct Auto 0.7 % (0.0-0.4); Lymphocytes Absolute Auto 2.8 X10*3/uL (1.2-4.9); Mean Corpuscular HGB Conc 34.4 g/dl (31.0-36.0); Mean Corpuscular Hemoglobin 30.4 pg (27.0-33.0); Mean Corpuscular Volume 88.3 fL (80.0-98.0); NRBC Abs Auto 0.000 X10*3/uL (0.0-0.012); NRBC Pct Auto 0.0 /100WBC (0.0-0.2); Platelet Count 263 X10*3/uL (160-400); Red Blood Count 4.80 X10*6/uL (4.60-5.80); White Blood Count 8.5 X10*3/uL (4.8-10.8)
[2024-12-24 14:40] LABS: Alanine Aminotransferase 14 U/L (0-40); Anion Gap 10 (12-20); Aspartate Amino Transferase 40 U/L (5-37); Blood Urea Nitrogen 22 mg/dL (9-16); Calcium 10.0 mg/dL (8.4-10.2); Carbon Dioxide 31 mmol/L (22-29); Chloride 98 mmol/L (96-108); Estimated Glomerular Filt Rate 59; Potassium 3.6 mmol/L (3.3-5.1); Sodium 135 mmol/L (135-145)
[2024-12-24 14:41] LABS: Albumin Level 4.5 g/dL (3.5-5.0); Alkaline Phosphatase 75 U/L (39-117); Cholesterol 109 mg/dL (<200); HDL Cholesterol 37 mg/dL (>40); Total Protein 7.3 g/dL (6.5-8.0); Triglycerides 72 mg/dL (<150)
== END 2024-12-24 09:32 | disposition home or self-care (01) ==
LOC: HO.CHCLDS 09:31
PROVIDERS: Visit Provider Internal Medicine
DX: I10 Essential (primary) hypertension (principal)
CPT/HCPCS: 36415; 80053; 80061; 85025